=== PATIENT | female | born 1970 | race Caucasian/White ===

== ENCOUNTER 2016-09-05 04:10 | Emergency (ER) | payer OTHER ==
[~2016-09-05] VITALS: Ht 182 cm; Wt 82.6 kg
[~2016-09-05 04:10] MED LIST: FLEXERIL10 MG PO; FLUOXETINE HCL20 M2 PO; LASIX20 M1 PO; METOPROLOL SUCC50 MG PO
--- NOTE | 2016-09-05 04:37 | ED GI/GU/ABDOMINAL COMPLAINT ---
History of Present Illness General Chief Complaint: Abdominal Pain/Flank Pain Stated Complaint: ABD PAIN +N\ Source: patient, old records Exam Limitations: no limitations Vital Signs & Intake/Output Vital Signs & Intake/Output Vital Signs Date Time Temp Pulse Resp B/P B/P Pulse O2 O2 Flow FiO2 Mean Ox Delivery Rate 09/05 0813 96.8 72 18 142/79 100 09/05 0559 96.4 68 18 132/63 98 Room Air 09/05 0435 160/98 09/05 0418 96.9 64 18 158/94 97 Allergies Coded Allergies: MDX - Hydrocodone (From Vicodin) (Intermediate, ITCHING 08/24/14) MDX - Oxycodone (From Percocet) (Intermediate, ITCHY 08/24/14) MDX - Carrots (Carrots) (UNKNOWN 08/24/14) MDX - Cat Hair Extract (Cat Hair Extract) (CATS 08/24/14) povidone-iodine (From BETADINE) (HIVES 09/05/16) soap (From BETADINE) (HIVES 09/05/16) Uncoded Allergies: SEASONAL ALLERGIES (Severe, SINUS EXACERABATION, SNEEZING 06/15/11) CATS AND RABBITS (11/20/13) Reconcile Medications Bupropion HCl (Wellbutrin XL) 300 MG TAB.ER.24H 1 TAB PO DAILY ANXIETY ( Reported) Fluoxetine HCl 20 MG CAPSULE 1 CAP PO DAILY ANXIETY (Reported) Metoprolol Succinate 50 MG TAB.ER.24H 1 TAB PO DAILY BP (Reported) Simvastatin (Simvastatin*) 10 MG TABLET 1 TAB PO QPM CHOL (Reported) Triage Note: PER PT WHILE AT WORK, FELT NAUSEOUS AND TINGLY ALL OF A SUDDEN AND BP WAS ELEVATED REPORTS BLOOD SUGAR WAS 88 PT HAS HAD ALOT OF COFFEE TODAY Triage Nurses Notes Reviewed? yes ? N Is pt currently ? No HPI: Patient was at work when all of a sudden she felt very lightheaded and tingling all over her body. Patient also became nauseous and was dry heaving. Patient had a blood pressure checked and was elevated. Patient is on medications for blood pressure down and she states that normally runs in the 1 teens over 70s. Patient denies any chest pain or palpitations. There is no shortness of breath. (CEDRIC CORNEJO,CLEVE Martino) Past History Travel History Traveled to [place] past 21 day No Medical History Any Pertinent Medical History? see below for history EENT: NONE Cardiovascular: hypertension, hyperlipidemia, tetralogy of fallot Respiratory: NONE Gastrointestinal: NONE Hepatic: NONE Renal: NONE Musculoskeletal: NONE Psychiatric: NONE Endocrine: NONE Cancer(s): L BREAST INPLANT Surgical History Surgical History: shoulder repair, tetraology of fallot 1975 Psychosocial History What is your primary language Kyrgyz Tobacco Use: Never used ETOH Use: denies use Illicit Drug Use: denies illicit drug use Family History Hx Contributory? No (CEDRIC CORNEJO,CLEVE Martino) Review of Systems Review of Systems Constitutional: Reports: no symptoms. EENTM: Reports: no symptoms. Respiratory: Reports: no symptoms. Cardiovascular: Reports: no symptoms. GI: Reports: see HPI, nausea. Genitourinary: Reports: no symptoms. Musculoskeletal: Reports: no symptoms. Skin: Reports: no symptoms. Neurological/Psychological: Reports: see HPI. Hematologic/Endocrine: Reports: no symptoms. Immunologic/Allergic: Reports: no symptoms. All Other Systems: Reviewed and Negative (CEDRIC CORNEJO,CLEVE Martino) Physical Exam Physical Exam General Appearance: well developed/nourished, alert, awake, anxious, mild distress Head: atraumatic, normal appearance Eyes: Bilateral: PERRL, EOMI. Ears, Nose, Throat, Mouth: hearing grossly normal, moist mucous membrane Neck: normal inspection, supple, full range of motion Respiratory: normal breath sounds, chest non-tender, no respiratory distress, lungs clear Cardiovascular: regular rate/rhythm, normal peripheral pulses, systolic murmur Gastrointestinal: normal bowel sounds, soft, non-tender, no organomegaly Back: normal inspection, normal range of motion Extremities: normal range of motion Neurologic/Psych: no motor/sensory deficits, awake, alert, oriented x 3, normal gait, normal mood/affect Skin: intact, normal color, warm/dry Core Measures ACS in differential dx? No Severe Sepsis Present: No Septic Shock Present: No (CEDRIC CORNEJO,CLEVE Martino) Progress Differential Diagnosis: AMI, biliary colic, cholecystitis, gastritis, hepatitis, hernia, ischemic bowel, inflamm bowel dis, pancreatitis, peptic ulcer, PUD/GERD Plan of Care: Orders Procedure Date/time Status TROPONIN LEVEL 09/05 0830 Complete EKG 09/05 0830 Active Telemetry/Server Support Technician 09/05 0434 Active TROPONIN LEVEL 07/26 0434 Complete LIPASE 09/05 433 Complete HUMAN BETA HCG SCREEN 09/05 433 Complete COMPREHENSIVE METABOLIC PANEL 09/05 433 Complete CBC WITHOUT DIFFERENTIAL 09/05 433 Complete AMYLASE 09/05 433 Complete EKG 09/05 416 Active Laboratory Tests 09/05/16 0838: Troponin I < 0.01 09/05/169: Anion Gap 15, Estimated GFR > 60, BUN/Creatinine Ratio 17.5, Glucose 117 H, Calcium 9.6, Total Bilirubin 0.6, AST 21, ALT 33, Alkaline Phosphatase 61, Troponin I < 0.01, Total Protein 7.8, Albumin 4.7, Globulin 3.1, Albumin/ Globulin Ratio 1.5, Amylase 52, Lipase 61, Total Beta HCG NEGATIVE, CBC w Diff NO MAN DIFF REQ, RBC 3.86 L, MCV 79.1 L, MCH 26.2 L, RDW 19.4 H, MPV 7.6, Gran % 72.9, Lymphocytes % 16.0 L, Monocytes % 4.4, Eosinophils % 6.1 H, Basophils % 0.6, Absolute Granulocytes 4.6, Absolute Lymphocytes 1.0 L, Absolute Monocytes 0.3, Absolute Eosinophils 0.4, Absolute Basophils 0, PUBS MCHC 33.1 Initial ED EKG: BIFASICULAR BLOCK WITH NSSTT CHANGES, NO CHANGE FROM PRIOR. Prior EKG: unchanged Rhythm Strip: normal sinus rhythm Hand-Off Endorsed To: JENNYFER LARSEN MD Endorsed Time: 0700 Pending: labs Comments: PT SEES DR. BURCIAGA FROM [facility]. Patient is feeling better as her blood pressure comes down. Patient will require a second set of enzymes. Lab results have been discussed with the patient and questions have been answered. (CLEVE STEELE MD) Comments: Repeat EKG and troponin unchanged. (JENNYFER LARSEN MD) Departure Departure Condition: Stable Clinical Impression Primary Impression: Hypertension Qualifiers: Hypertension type: unspecified Qualified Code: I10 - Essential ( primary) hypertension Secondary Impressions: Lightheadedness Referrals: JUAN CORNEJO,CRISTOBAL Marshall (PCP/Family) Departure Forms: Customer Survey General Discharge Information (CLEVE STEELE MD) Departure Time of Disposition: 943 Disposition: HOME OR SELF CARE (JENNYFER LARSEN MD)
[2016-09-05 04:50] LABS: ABSOLUTE BASOPHIL COUNT 0 /CUMM (0.0-0.2); ABSOLUTE EOSINOPHIL COUNT 0.4 /CUMM (0.0-0.7); ABSOLUTE GRANULOCYTE CT 4.6 /CUMM (1.4-6.5); ABSOLUTE MONOCYTE COUNT 0.3 /CUMM (0.10-0.60); BASOPHIL % 0.6 % (0.0-2.0); EOSINOPHIL % 6.1 % (0-5); GRANULOCYTE % 72.9 % (42.2-75.2); HEMATOCRIT 30.5 % (37-47); MEAN CORPUSCULAR HGB 26.2 PG (27.0-31.0); MEAN CORPUSCULAR HGB CONC 33.1 G/DL (33.0-37.0); MEAN CORPUSCULAR VOLUME 79.1 FL (81.0-99.0); MEAN PLATELET VOLUME 7.6 FL (7.4-10.4); PLATELET COUNT 216 /CUMM (130-400); RBC DISTRIBUTION WIDTH 19.4 % (11.5-14.5); RED BLOOD CELL CT 3.86 /CUMM (4.20-5.40); WHITE BLOOD CELL COUNT 6.4 /CUMM (4.8-10.8)
[2016-09-05] MEDS ORDERED: SIMVASTATIN10 M1 PO (05:55)
[2016-09-05] MEDS ORDERED: WELLBUTRIN XL300 M2 PO (05:56)
[2016-09-05 09:53] VITALS: BP 139/79
== END 2016-09-05 09:56 ==
LOC: ERH 04:10
PROVIDERS: Emergency Medicine
DX: I10 Essential (primary) hypertension (principal); R42 Dizziness and giddiness
CPT/HCPCS: 93005; 93010; 96361; 96374; J2405

== ENCOUNTER 2017-03-20 19:01 | Emergency (ER) | payer OTHER ==
[~2017-03-20] VITALS: Ht 162.6 cm; Wt 81.6 kg
[~2017-03-20 19:01] MED LIST changes: +SIMVASTATIN10 M1 PO; +WELLBUTRIN XL300 M2 PO
[2017-03-20 19:10] VITALS: BP 138/91
--- NOTE | 2017-03-20 19:36 | ED HAND/WRIST INJURY COMPLAINT ---
History of Present Illness General Chief Complaint: General Adult Stated Complaint: R HAND INJURY; WORK RELATED INJURY Source: patient Exam Limitations: no limitations Vital Signs & Intake/Output Vital Signs & Intake/Output Vital Signs Date Time Temp Pulse Resp B/P B/P Pulse O2 O2 Flow FiO2 Mean Ox Delivery Rate 03/20 1910 97.1 107 15 138/91 97 Room Air Room Air Allergies Coded Allergies: MDX - Hydrocodone (From Vicodin) (Intermediate, ITCHING 03/20/17) MDX - Oxycodone (From Percocet) (Intermediate, ITCHY 03/20/17) MDX - Carrots (Carrots) (UNKNOWN 03/20/17) MDX - Cat Hair Extract (Cat Hair Extract) (CATS 03/20/17) povidone-iodine (From BETADINE) (HIVES 03/20/17) soap (From BETADINE) (HIVES 03/20/17) Uncoded Allergies: SEASONAL ALLERGIES (Severe, SINUS EXACERABATION, SNEEZING 06/15/11) CATS AND RABBITS (11/20/13) Reconcile Medications Bupropion HCl (Wellbutrin XL) 300 MG TAB.ER.24H 1 TAB PO DAILY ANXIETY ( Reported) Fluoxetine HCl 20 MG CAPSULE 1 CAP PO DAILY ANXIETY (Reported) Metoprolol Succinate 50 MG TAB.ER.24H 1 TAB PO DAILY BP (Reported) Simvastatin (Simvastatin*) 10 MG TABLET 1 TAB PO QPM CHOL (Reported) Triage Note: PT TO ED FOR C/C OF R HAND AND WRIST PAIN S/P SLIP AND FALL AT WORK. +CMS TO EXTREMITIY. PT REPORTS THE SAME SENSATION IN HER ARM/HAND PREVIOUS ROTATOR CUFF INJURY. Triage Nurses Notes Reviewed? yes Occurred: just prior to arrival Duration: minute(s):, constant Timing: single episode today Injury Environment: street Severity: moderate, severe Pain/Injury Location: Right: Shoulder, Hand, Other (BACK). Method of Injury: fall No Modifying Factors: none : No Patient currently breastfeeds: No HPI: 46-year-old female comes into emergency room for further evaluation of right hand pain and shoulder pain. Patient was on her way into work when she slipped outside on the ice. She came down on her right hand. She has some pain to her right upper back/shoulder. Sharp. Throbbing. (Ashkan Rodriguez) Past History Travel History Traveled to [place] past 21 day No Medical History Any Pertinent Medical History? see below for history EENT: NONE Cardiovascular: hypertension, hyperlipidemia, tetralogy of fallot Respiratory: NONE Gastrointestinal: NONE Hepatic: NONE Renal: NONE Musculoskeletal: NONE Psychiatric: NONE Endocrine: NONE Cancer(s): L BREAST INPLANT Surgical History Surgical History: shoulder repair, tetraology of fallot 1975 Psychosocial History What is your primary language Tanzanian Tobacco Use: Never used ETOH Use: occasional use Illicit Drug Use: denies illicit drug use Family History Hx Contributory? No (Ashkan Rodriguez) Review of Systems Review of Systems Constitutional: Reports: no symptoms. EENTM: Reports: no symptoms. Respiratory: Reports: no symptoms. Cardiovascular: Reports: no symptoms. GI: Reports: no symptoms. Genitourinary: Reports: no symptoms. Musculoskeletal: Reports: see HPI. Skin: Reports: no symptoms. Neurological/Psychological: Reports: no symptoms. Hematologic/Endocrine: Reports: no symptoms. Immunologic/Allergic: Reports: no symptoms. All Other Systems: Reviewed and Negative (Ashkan Rodriguez) Physical Exam Physical Exam General Appearance: well developed/nourished, mild distress Head: atraumatic Eyes: Bilateral: normal appearance. Ears, Nose, Throat: normal ENT inspection, hearing grossly normal Neck: normal inspection Cardiovascular/Respiratory: no respiratory distress Back: normal inspection Shoulder Right: normal range of motion, normal inspection, soft tissue tenderness Wrist Right: normal range of motion Hand Left: normal inspection Hand Right: normal inspection, normal range of motion, SOFT TISSUE TENDERNESS, NO SNUFFBOX TENDERNESS Neurologic/Tendon: normal sensation, normal motor functions, normal tendon functions, responds to pain, no evidence tendon injury, no pulse deficit Skin: intact, normal color, warm/dry Diagram Shoulders Front/Back 1) (Ashkan Rodriguez) Progress Differential Diagnosis: contusion, dislocation, fracture, septic arthritis, sprain, tenosynovitis Plan of Care: Orders Procedure Date/time Status XRY-HAND, 3 View RIGHT 03/20 1904 Active Diagnostic Imaging: Viewed by Me: Radiology Read. Discussed w/RAD: Radiology Read. Radiology Impression: PATIENT: FELIX HUERTAS PRESENT AGE: 46 PATIENT ACCOUNT NO: [id number] : 72 LOCATION: [facility] ORDERING PHYSICIAN: Jerardo TRIANA SERVICE DATE: 03/20/17 EXAM TYPE: RAD - XRY -HAND, RIGHT EXAMINATION: XR HAND, RIGHT CLINICAL INFORMATION: Trauma of the right hand COMPARISON: None TECHNIQUE: PA, lateral, and oblique views of the right hand. FINDINGS: There is no evidence of acute fracture or dislocation. Alignment is anatomic. Joint spaces are maintained. The soft tissues are unremarkable. IMPRESSION: No fracture or malalignment. DICTATED BY: Dinesh Kolb MD DATE/TIME DICTATED:03/20/171934 EDUCATION AND TRAINING MANAGER:ZAKIYA DATE/ TIME TRANSCRIBED:03/20/171934 CONFIDENTIAL, DO NOT COPY WITHOUT APPROPRIATE AUTHORIZATION. <Electronically signed in Other Vendor System> SIGNED BY: Dinesh Kolb MD 03/20/171940 Comments: 03/20/2017 9:21:50 PM Patient clinically looks well. In no apparent distress. No evidence of acute trauma. Follow-up with occupational medicine. Return if any other concerns. (Jason TRIANA,Ashkan) Departure Departure Disposition: HOME OR SELF CARE Condition: Stable Clinical Impression Primary Impression: Sprain of right hand Referrals: Carina CORNEJO,Skyler Marshall (PCP/Family) Additional Instructions: Take ibuprofen as needed for pain. Ice. Rest. Follow-up with occupational medicine. Please go over all results of today's visit with your primary care doctor. Contact your primary care doctor to let them know you were here in the emergency room. There may be nonspecific findings which may not be related to your visit today here in the emergency room but may require further evaluation and chronic monitoring by your primary care doctor. If you had a laceration today the chance of foreign body always remains. You should follow-up with your primary care doctor for recheck in 3-5 days for a wound check. If you had an x-ray done there is a chance that a fracture could have been missed on initial read and you should follow-up with your primary care doctor for repeat x-rays if symptoms persist. If your blood pressure was elevated here in the emergency room please have rechecked by [facility] primary care doctor within the next 48. If you were prescribed a narcotic here in the emergency room or any type of controlled substances you're not allowed to drive while taking this medication or operate any type of heavy machinery. Narcotics can make you feel lightheaded dizziness nausea and can cause constipation. You may need to shredder picker a stool softener. Thank you for choosing [facility] emergency room. Please return to the emergency room immediately if you have any other concerns worsening of symptoms. Departure Forms: Customer Survey General Discharge Information (Ashkan Rodriguez) PA/CROP AND SOIL TECHNICIAN Co-Sign Statement Statement: ED Attending supervision documentation- I saw and evaluated the patient. I have also reviewed all the pertinent lab results and diagnostic results. I agree with the findings and the plan of care as documented in the PA's/CROP AND SOIL TECHNICIAN's documentation. x I have reviewed the ED Record and agree with the PA's/CROP AND SOIL TECHNICIAN's documentation. [] Additions or exceptions (if any) to the PAs/CROP AND SOIL TECHNICIAN's note and plan are summarized below: [] (Phillip CORNEJO,Mehul) Procedures Splinting Location: RIGHT HAND Manual Alignment Performed: No Pre-Made Type: velcro Splint: volar, wrist Splint Applied By: splint applied by me Pre-Proc Neuro Vasc Exam: normal Post-Proc Neuro Vasc Exam: normal (Ashkan Rodriguez)
--- NOTE | 2017-03-20 19:41 | RADIOLOGY REPORT ---
EXAMINATION: XR HAND, RIGHT CLINICAL INFORMATION: Trauma of the right hand COMPARISON: None TECHNIQUE: PA, lateral, and oblique views of the right hand. FINDINGS: There is no evidence of acute fracture or dislocation. Alignment is anatomic. Joint spaces are maintained. The soft tissues are unremarkable. IMPRESSION: No fracture or malalignment.
== END 2017-03-20 19:46 ==
LOC: ERH 19:01
DX: S63.91XA Sprain of unspecified part of right wrist and hand, initial encounter (principal); W00.0XXA Fall on same level due to ice and snow, initial encounter; Y92.410 Unspecified street and highway as the place of occurrence of the external cause; Y93.9 Activity, unspecified
CPT/HCPCS: 73130-RT